=== PATIENT | female | born 1960 | race African-American/Black ===

== ENCOUNTER 2017-03-24 15:09 | Emergency (ER) | payer MEDICARE ==
[~2017-03-24] VITALS: Ht 162.6 cm; Wt 81.2 kg
--- NOTE | 2017-03-24 15:32 | Emergency Room Report ---
History of Present Illness General Chief Complaint: Headache Source: EMS Present Illness HPI 56 yo female presents to ER [facility] complaining of STERN x3days. Patient reports she was sent over from pain management clinic due to STERN symptoms. Patient reports STERN in front of skull. Patient denies worst STERN of life. Patient reports she has not eaten food today; states STERN sometimes occur when she has not eaten. Patient reports taking Naproxen at home with mild relief of symptoms; Naproxen prescribed by pain management. Patient denies STERN waking up from sleep. Patient reports hx of high blood pressure; states it fluctuates "a lot, to over 180" at home and that's when STERN symptoms begin. Patient states BP changes from "minute to minute" when using home BP monitoring device; states is constantly monitoring at home. Patient reports recent change in BP medication. Patient denies vision changes, hearing changes. Patient complains of nasal congestion during this time. Reports hx of sick contacts. Patient denies dysuria, hematuria, vaginal bleed. Patient denies fever, chest pain, SOB. Allergies: Coded Allergies: SULFA (SULFONAMIDE ANTIBIOTICS) (Verified Allergy, Unknown, 03/24/17) Patient History Past Medical History: see triage record Last Menstrual Period: N/A Now: No Reviewed Nursing Documentation: PMH: Agreed, PSxH: Agreed Nursing Documentation-PMH Past Medical History: No History, Except For Hx Hypertension: Yes Review of Systems All Other Systems: negative except mentioned in HPI Physical Exam Vital Signs Date Time Temp Pulse Resp B/P (MAP) Pulse Ox O2 Delivery O2 Flow Rate FiO2 03/24/17 15:11 98.1 82 18 147/83 97 Room Air Sp02 EP Interpretation: reviewed, normal General Appearance: no apparent distress, alert, GCS 15, non-toxic Head: normocephalic, atraumatic, other - TTP over frontal sinuses, no TTP over maxillary sinuses, no TTP over temporal bone Eyes: bilateral eye normal inspection, bilateral eye PERRL, bilateral eye EOMI ENT: hearing grossly normal, normal pharynx, no angioedema, normal voice, TMs + canals normal, uvula midline, moist mucus membranes, nasal congestion, pharyngeal erythema Neck: full range of motion, no carotid bruits, supple/symm/no masses Respiratory: chest non-tender, lungs clear, normal breath sounds, speaking full sentences Cardiovascular #1: regular rate, rhythm, no edema Cardiovascular #2: 2+ carotid (R), 2+ carotid (L), 2+ radial (R), 2+ radial (L) Gastrointestinal: normal bowel sounds, non tender, soft, non-distended, no guarding, no rebound Rectal: deferred Genitourinary: no CVA tenderness Musculoskeletal: back normal, digits/nails normal, gait/station normal, normal range of motion, non-tender, Demi's Sign negative Neurologic: alert, oriented x3, responsive, weekend caregiver III-XII nml as tested, motor strength/tone normal, sensory intact, speech normal Psychiatric: mood/affect normal Skin: normal color, no rash, warm/dry, palpation normal, well hydrated Lymphatic: no adenopathy Medical Decision Making PA Attestation Dr. Ha is my supervising Physician whom patient management has been discussed with. Diagnostic Impression: Primary Impression: Headache Additional Impression: Elevated blood pressure reading ER Course Pt presents to ED c/o headache. DDX considered but are not limited to cluster STERN, tension STERN, sinusitis, UTI. VITAL SIGNS patient is afebrile, blood pressure reading is elevated Discussed elevation with patient; instructed patient to follow up with primary care provider for further treatment and blood pressure control with medications and lifestyle choices. Patient reports understanding and agreement to treatment plan ORDERS: UA - negative for infection ED INTERVENTIONS: -Metoclopramide 10mg IM for pain, N/V; possible SE: tics, spasm, N/V -Benadryl 25mg IM ; possible SE: drowsiness Patient provided with food in ER. Patient reports feeling "much better" following administration of medication and eating food. Patient instructed that STERN may be caused by sinus congestion. Instructed patient to follow up with PCP for further treatment and referral. Continue to take Naproxen at home for STERN symptom relief. Patient reports understanding and agreement to treatment plan. Patient is in no acute distress, nontoxic appearing, resting in her seat, talking and laughing with people in ER. DISCHARGE: -Rx provided for Sudafed At this time pt is stable for d/c to home. Will provide with patient care instructions and any necessary prescriptions. Patient to take medication as instructed. Care plan and follow-up instructions provided. Patient questions asked and answered. Patient instructed to follow-up with primary care provider in the next 3 days and discuss further referral with PCP to neurology. ER precautions given. Patient instructed to return to ER immediately for any new or worsening of symptoms including but not limited to fever, chest pain, SOB , neck stiffness, vision changes, and neurological symptoms. Labs Test 03/24/17 17:00 Urine Color Pale yellow Urine Appearance Clear Urine pH 5 (4.5-8.0) Urine Specific [place] 1.015 (1.005-1.035) Urine Protein Negative (NEGATIVE) Urine Glucose (UA) Negative (NEGATIVE) Urine Ketones Negative (NEGATIVE) Urine Occult Blood Negative (NEGATIVE) Urine Nitrite Negative (NEGATIVE) Urine Bilirubin Negative (NEGATIVE) Urine Urobilinogen Normal MG/DL (0.0-1.0) Urine Leukocyte Esterase Negative (NEGATIVE) Last Vital Signs Date Time Temp Pulse Resp B/P (MAP) Pulse Ox O2 Delivery O2 Flow Rate FiO2 03/24/17 15:11 98.1 82 18 147/83 97 Room Air Disposition: HOME, SELF-CARE Condition: Improved - following administration of medication and eating food Scripts Pseudoephedrine Hcl* (SUDAFED*) 30 Mg Tablet 30 MG PO Q6H for 5 Days, #24 TAB Prov: Gilberto Hernandez 03/24/17 Patient Instructions: Hypertension, [id number], Sinus Headache Additional Instructions: Followup with primary care provider in 2-3 days. Take medications as directed. Continue to take blood pressure medications as directed. Patient questions asked and answered. ER precautions given, patient instructed to return to ER immediately for any new or worsening of symptoms. Gilberto Hernandez Mar 24, 2017 15:32
[2017-03-24 16:45] VITALS: BP 146/90
[2017-03-24] MEDS ORDERED: PSEUDOEPHEDRINE30 MG PO (17:02)
[2017-03-24] MEDS ORDERED: EXCEDRIN MIGRA1 EACH PO (17:02)
[2017-03-24 17:14] LABS: APPEARANCE,URINE CLEAR; BILIRUBIN, URINE NEGATIVE (NEGATIVE); COLOR,URINE PALE YELLOW; GLUCOSE, URINE (UA) NEGATIVE (NEGATIVE); KETONES,URINE NEGATIVE (NEGATIVE); LEUKOCYTE ESTERASE ,URINE NEGATIVE (NEGATIVE); NITRITE,URINE NEGATIVE (NEGATIVE); PH,URINE 5 (4.5-8.0); PROTEIN,URINE NEGATIVE (NEGATIVE); UROBILINOGEN,URINE NORMAL MG/DL (0.0-1.0)
== END 2017-03-24 16:58 | disposition home or self-care (01) ==
LOC: EDBD 15:09 → EMR 16:32
DX: R51 Headache (principal); I10 Essential (primary) hypertension; Z88.2 Allergy status to sulfonamides
CPT/HCPCS: 81003; 99283